=== PATIENT | female | born 1940 | race Caucasian/White ===

== ENCOUNTER 2019-07-02 06:20 | Inpatient (IN) ==
--- NOTE | 2019-06-09 20:56 | PAT Medication Instructions ---
Medication Instructions Date of Service June 09, 2019 Home Medications atorvastatin 20 mg PO QPM biotin 10,000 mcg PO HS calcium carbonate-vitamin D3 Calcium 600 + D(3) 1 cap PO BID diltiazem HCl 240 mg PO QAM diltiazem HCl 240 mg PO QAM glucos sul [id number]-C-Mn Glucosamine Chondroitin 1 cap PO BID levothyroxine 75 mcg PO QAM losartan 100 mg PO QPM lutein-zeaxanthin 1 cap PO QAM magnesium oxide 400 mg PO DAILY multivitamin 1 cap PO 1200 potassium chloride 10 meq PO DAILY triamterene-hydrochlorothiazid 1 tab PO DAILY triamterene-hydrochlorothiazid 1 tab PO QAM turmeric root extract 1,500 mg PO BIDM STOP taking 2 weeks before surgery (or as soon as possible if surgery is within 2 weeks) biotin 10,000 mcg PO HS glucos sul [id number]-Mn Glucosamine Chondroitin 1 cap PO BID lutein-zeaxanthin 1 cap PO QAM turmeric root extract 1,500 mg PO BIDM DO NOT take the morning of surgery calcium carbonate-vitamin D3 Calcium 600 + D(3) 1 cap PO BID magnesium oxide 400 mg PO DAILY multivitamin 1 cap PO 1200 potassium chloride 10 meq PO DAILY triamterene-hydrochlorothiazid 1 tab PO DAILY triamterene-hydrochlorothiazid 1 tab PO QAM Take morning of surgery With a small sip of water, OTHERWISE NOTHING TO EAT OR DRINK AFTER MIDNIGHT: diltiazem HCl 240 mg PO QAM diltiazem HCl 240 mg PO QAM levothyroxine 75 mcg PO QAM Take evening before surgery atorvastatin 20 mg PO QPM calcium carbonate-vitamin D3 Calcium 600 + D(3) 1 cap PO BID losartan 100 mg PO QPM Other Notes If you have any questions please call us at [phone] or [phone] or [phone] or [phone]
--- NOTE | 2019-06-10 10:34 | Anesthesiology Consultation ---
Date of Service June 10, 2019 Assessment & Plan (1) Encounter for pre-operative examination: - Anxiety: *Per patient, has previously hyperventilated prior to surgery/anxiety related* Chart Review Chart Review: Acceptable Risk for Surgery (pending cardiology office visit note (Dr. Sargent; [place])) and Patient seen in Pre Admission Testing Teaching & Discussion Pre-Anesthesia Teaching/Discussion Notes: Instructed NPO after midnight before surgery,except medications with 15 cc of water. Medication instructions provided according to the PAT guidelines. History Surgery Operation Date: 07/02/19 07:30 Proposed Procedures p Right Total Knee Replacement - Chris Banegas MD Height/Weight Height: 5 ft 4 in Weight: 75.7 kg Allergies Allergy/AdvReac Type Severity Reaction Status Date / Time amlodipine Allergy edema Verified 06/10/19 10:57 diltiazem Allergy edema Verified 06/10/19 10:57 metoclopramide [From Reglan] Allergy unknown Verified 06/10/19 10:57 reaction nebivolol [From Bystolic] Allergy edema, Verified 06/10/19 10:57 breathing issues cyclobenzaprine AdvReac Unknown heart Verified 06/10/19 10:41 [From Flexeril] arrhythmias worsening doxycycline AdvReac Unknown heart Verified 06/10/19 10:41 arrhythmias worsening, diarrhea lisinopril AdvReac cough Verified 06/10/19 10:57 metoprolol AdvReac bloating, Verified 06/10/19 10:57 malaise Medications Home Medications Medication Instructions Recorded Confirmed Last Taken atorvastatin 20 mg PO QPM 06/03/19 06/03/19 Unknown biotin 10,000 mcg PO HS 06/03/19 06/03/19 Unknown calcium carbonate-vitamin D3 1 cap PO BID 06/03/19 06/03/19 Unknown [Calcium 600 + D(3)] diltiazem HCl 240 mg PO QAM 06/03/19 06/03/19 Unknown diltiazem HCl 240 mg PO QAM 06/03/19 06/03/19 Unknown glucos sul [id number]-Mn 1 cap PO BID 06/03/19 06/03/19 Unknown [Glucosamine Chondroitin] levothyroxine 75 mcg PO QAM 06/03/19 06/03/19 Unknown losartan 100 mg PO QPM 06/03/19 06/03/19 Unknown lutein-zeaxanthin 1 cap PO QAM 06/03/19 06/03/19 Unknown magnesium oxide 400 mg PO DAILY 06/03/19 06/03/19 Unknown multivitamin 1 cap PO 1200 06/03/19 06/03/19 Unknown potassium chloride 10 meq PO DAILY 06/03/19 06/03/19 Unknown triamterene-hydrochlorothiazid 1 tab PO DAILY 06/03/19 06/03/19 Unknown triamterene-hydrochlorothiazid 1 tab PO QAM 06/03/19 06/03/19 Unknown turmeric root extract 1,500 mg PO BIDM 06/03/19 06/03/19 Unknown Past Medical History Medical History Esophageal reflux occasional Hx of squamous cell carcinoma of skin s/p punch biopsy Hyperlipidemia Hypertension Hypothyroidism LBBB (left bundle branch block) MVP (mitral valve prolapse) Moderate prolapse of the anterior leaflet of the mitral valve. Mild to mode rate MR. per 10/2018 ECHO Osteoarthritis PAC (premature atrial contraction) PVC (premature ventricular contraction) Exercise / Class Metabolic Activity II 4-5 Yardwork/Stairs/Walk up hill Past Family History Family History Father Family history of diabetes mellitus Brother Family history of diabetes mellitus Past Surgical History Surgical History History of D&C History of carpal tunnel surgery of left wrist History of endoscopic sinus surgery History of esophagogastroduodenoscopy (EGD) History of left knee replacement History of radiofrequency ablation procedure for cardiac arrhythmia 2/2 SVT (2011) History of right shoulder replacement History of surgery Myotomy fundoplication History of surgical removal of ganglion cyst History of throat surgery thyroplasty (2/2 vocal cord dysfunction/"singing range" limited) History of tonsillectomy History of tubal ligation Hx of bilateral cataract extraction Hx of blepharoplasty Hx of colonoscopy Hx of total hysterectomy Past Anesthesia History No Hx of Anesthesia Complications (except PONV) and No Family Hx of Anesthesia Complications *Per patient, has previously hyperventilated prior to surgery/anxiety related* History of PONV No Hx of Motion Sickness and History of PONV Social History Smoking Status: Never smoker Do You Dip or Chew Tobacco: No Hx Alcohol Use: Yes Alcohol type: wine alcohol intake frequency: a few times a month Hx Substance Use: No Review of Systems Occasional palpitations (unchanged, chronic, stable). Esophageal reflux occasional. Patient denies chest pain, shortness of breath, dyspnea on exertion, cough, wheezing, palpitations. Physical Exam Vital Signs VITALS BP 154/83 P 70 TEMP 98.4 SP02 93%RA RESP 20 PHYSICAL Mildly decreased cervical extension 2/2 arthritis Full TMJ range of motion. TMD 3 finger breaths Mallampati Score 1 Dentition: intact, several crowns "all over" Lungs: clear throughout to auscultation Cardiac: regular rate and rhythm, no murmurs noted Spine: normal Carotid arteries: negative bruit Extremities: no edema Testing Laboratory Results 06/10/19 10:51 06/10/19 10:51 PT 9.9 Seconds (9.0-12.0) 06/10/19 10:51 INR 1.0 (0.9-1.1) 06/10/19 10:51 APTT 23.9 Seconds (21.0-31.0) 06/10/19 10:51 Blood Type A Positive 06/10/19 10:51 Antibody Screen NEGATIVE 06/10/19 10:51 Electrocardiogram Date: 11/28/18 SR at 73bpm. LBBB. PAC's. Chest X-Ray Date: 06/10/19 There is no evidence of focal pulmonary consolidation. There is no evidence of failure. No pleural effusions are visualized. There are postsurgical changes of a right shoulder arthroplasty. There is possible calcific tendinitis within the left shoulder. No active disease in the chest. Echocardiogram Date: 10/22/18 LVEF 55-60%. Mild cLVH. Moderate prolapse of the anterior leaflet of the mitral valve. Mild to moderate MR. Mild LAD. Borderline RAD. Mild TR.
--- NOTE | 2019-06-10 11:12 | XRay Report ---
XR chest Pre-admission PA/Lat CLINICAL HISTORY: Preoperative chest COMPARISON STUDY: April 2016 FINDINGS: The cardiac and mediastinal contours are normal. There is no evidence of focal pulmonary co nsolidation. There is no evidence of failure. No pleural effusions are visualized.[There are postsurg ical changes of a right shoulder arthroplasty. There is possible calcific tendinitis within the left shoulder. IMPRESSION: No active disease in the chest. Electronically signed by: Giovanni Carey M.D. 06/10/2019 11:10 AM
[2019-06-10 11:45] LABS: Basophils # (auto) 0.02 K/uL (0-0.2); Basophils % (auto) 0.4 %; Eosinophils # (auto) 0.09 K/uL (0-0.5); Eosinophils % (auto) 1.8 %; Hematocrit (blood only) 40.8 % (37-47); Hemoglobin 13.9 g/dL (12.0-16.0); Immature Granulocytes # (auto) 0.01 K/uL (0.00-0.02); Immature Granulocytes % (auto) 0.2 %; Lymphocytes % (auto) 35.3 %; Mean Corpuscular Hemoglobin 30.2 pg (25-34); Mean Corpuscular Hgb Conc 34.1 g/dL (32-36); Mean Corpuscular Volume 88.7 fL (80-100); Mean Platelet Volume 10.8 fL (7.4-10.4); Monocytes # (auto) 0.61 K/uL (0.11-0.59); Neutrophils # (auto) 2.57 K/uL (1.4-6.5); Neutrophils % (auto) 50.3 %; Platelet Count 196 K/uL (130-400); RDW Standard Deviation 42.3 fL (36.4-46.3)
[2019-06-10 11:55] LABS: Partial Thromboplastin Ratio 0.9; Partial Thromboplastin Time 23.9 Seconds (21.0-31.0); Prothrombin Time 9.9 Seconds (9.0-12.0)
[2019-06-10 16:40] LABS: BUN Creatinine Ratio 20.9 (10-20); Blood Urea Nitrogen 21 mg/dl (7-18); C Reactive Protein < 0.29 mg/dl (0-0.29); Calcium 9.6 mg/dl (8.5-10.1); Carbon Dioxide 30 mmol/L (21-32); Chloride 103 mmol/L (98-107); Creatinine Clr Calc Pharmacy 46.5 ml/min; Est GFR (African American) 62.2; Est GFR (Non-African American) 53.7; Glucose 82 mg/dl (70-99); Potassium 3.6 mmol/L (3.5-5.1); Sodium 138 mmol/L (136-145)
--- NOTE | 2019-06-27 17:57 | History and Physical Report ---
DATE OF ADMISSION: 07/02/2019 CHIEF COMPLAINT: Right knee pain, discomfort and stiffness. HISTORY OF PRESENT ILLNESS: The patient is a 78-year-old female well known to me from previous left knee replacement done in 2007. She has done pretty well on that side. Over the past several years, she has developed increased pain and discomfort in her right knee. It has gotten worse just slowly over a 10-year period of time. She has had intermittent injections, which provides some temporary relief only. It has become less successful over time. Knee has become more stiff. The more she walks, the more it hurts, the more she limps. She has pain going up and down stairs. She has trouble exercising as a result of her pain. She gets swelling. She would like to have her right knee fixed. PAST MEDICAL HISTORY: Significant for: 1. Hypertension. 2. Elevated cholesterol. 3. Hypothyroidism. 4. Gastroesophageal reflux disease. 5. Arthritis. PAST SURGICAL HISTORY: Previous surgeries include: 1. Tonsillectomy. 2. Tubal ligation. 3. D and C. 4. Hysterectomy. 5. Ganglion cyst removal. 6. Sinus surgery. 7. Left knee replacement done in 2007. 8. Right shoulder replacement done in 2010 in [place]. 9. Catheter ablation. 10. Cataracts. 11. Eyelid reduction. 12. Carpal tunnel release. 13. Fundoplication. 14. Pyeloplasty. ALLERGIES: TO BYSTOLIC, METOPROLOL, AMLODIPINE, DILTIAZEM, DOXYCYCLINE, FLEXERIL. CURRENT MEDICINES: Include: 1. Levothyroxine 75 mcg a day. 2. Cozaar 100 mg. 3. Triamterene/hydrochlorothiazide 37.5/25 mg once a day. 4. Dexilant 60 mg twice a day. 5. Atorvastatin 20 mg. 6. Potassium 10 mEq a day. 7. Lutein. 8. Centrum Silver. 9. Vitamin D3. 10. Biotin. 11. Magnesium. 12. Calcium. 13. Glucosamine. 14. Turmeric. SOCIAL HISTORY: A 78-year-old female patient from [place]. Very active. Does not smoke. FAMILY HISTORY: Noncontributory. REVIEW OF SYSTEMS: Negative for diabetes, neurologic problem, vascular problem, bleeding disorders. No chest pain or shortness of breath. No history of DVT or PE. PHYSICAL EXAMINATION: GENERAL: Reveals a healthy pleasant elderly female. Looks younger than her stated age. HEENT: Benign. NECK: Supple. No lymphadenopathy. LUNGS: Clear to auscultation. HEART: Regular rate and rhythm. ABDOMEN: Soft, nontender, nondistended. EXTREMITIES: Grossly neurovascularly intact except as follows. Examination of the right knee reveals the patient walks independently. She does seem to limp on this right side slightly. She has got a moderate sized knee effusion. Range of motion about 10 degrees of full extension and about 110 degrees of flexion and fairly stiff. There is no clinical instability. No pain with hip motion. She is neurologically intact. Examination of left knee reveals well-healed incision. No swelling. Range of motion is 0-120. X-RAYS: X-rays of right knee reveal advanced right knee tricompartment DJD. She has got complete loss of her medial and lateral joint space. She has got patellofemoral arthritis. She has got osteophytes in all 3 compartments and subchondral sclerosis. ASSESSMENT: A 78-year-old white female 11 years out from left knee replacement with right knee degenerative joint disease. She has failed conservative treatment and would like to have her right knee replaced. PLAN: We will take her to the Operating Room and do a right total knee replacement. The risks and benefits of this procedure were explained to the patient including but not limited to DVT, PE, , infection, neurological injury, vascular injury, bleeding problem, pain, limited range of motion, stiffness, failure to relieve symptoms, incomplete relief of symptoms, need for further surgery in future, fracture, leg length inequality, nerve palsy, etc. The patient understands and desires to proceed. Informed consent was obtained. We talked about pain management. She really wants to avoid Percocet if all possible. We will careful with NSAIDs due to her slightly compromised renal function. We will use Tylenol and low dose NSAIDs and then likely some tramadol. We will hold on any iron if she has had troubles with that unless her blood count gets low. As far as discharge plans, she is planning to be discharged home using [facility].
[~2019-07-02 06:20] MED LIST: ACETAMINOPHEN 500 MG TAB PO SCH; BUPIVACAINE LIPOSOME/PF 266 MG, BUPIVACAINE/EPINEPHRINE 50 ML, SODIUM CHLORIDE 0.9% 30 ... INFIL SCH; CEFAZOLIN 2000MG 2,000 MG/15 ML SYR IV SCH; FAMOTIDINE 20 MG TAB PO SCH; GABAPENTIN 300 MG CAP PO SCH; LR 15ML/HR IV SCH; LR 60ML/HR IV SCH; METOCLOPRAMIDE HCL 10 MG TABLET PO SCH; SCOPOLAMINE 1.5 MG TDSY TD SCH; TRANEXAMIC ACID 1,000 MG **IV Pre-op IV SCH
[2019-07-02] MEDS ORDERED: TRANEXAMIC ACID 1,000 MG **IV Intra-op IV SCH (06:30)
--- NOTE | 2019-07-02 06:51 | History & Physical Bridge Note ---
Date of Service July 02, 2019 History & Physical Bridge Note I have examined the patient, reviewed the History & Physical and in the interval since the performance of the History & Physical I have noted the following changes of clinical significance: no changes noted
[2019-07-02] MEDS ORDERED: ROPIVACAINE 0.5% 5 MG/ML 30 ML VIAL ONE (07:12)
[2019-07-02] MEDS ORDERED: BUPIVACAINE 0.5 % 5 MG/1 ML PF 10ML VIAL ONE (07:13)
[2019-07-02] MEDS ORDERED: PROPOFOL IV EMULSION 10 MG/ML 20 ML VIAL IV ONE ×2 (07:37→10:11)
[2019-07-02] MEDS ORDERED: MIDAZOLAM HCL 1 MG/ML 2ML VIAL ONE (07:37)
[2019-07-02] MEDS ORDERED: fentaNYL citrate 100 MCG/2 ML VIAL ONE (07:37)
[2019-07-02] MEDS ORDERED: LIDOCAINE HCL 2% 2 ML VIAL/AMP(20MG/ML) INFIL ONE (07:37)
[2019-07-02] MEDS ORDERED: ePHEDrine sulfate 50 MG/ML AMP IV PRN (08:12)
[2019-07-02] MEDS ORDERED: fentaNYL citrate 100 MCG/2 ML VIAL IV PRN (08:12)
[2019-07-02] MEDS ORDERED: ATROPINE SULFATE 0.1 MG/ML 10ML SYR IV PRN (08:12)
[2019-07-02] MEDS ORDERED: ONDANSETRON INJ 2 MG/ML 2 ML VIAL IV PRN (08:12)
[2019-07-02] MEDS ORDERED: BUPIVACAINE/EPINEPHRINE 0.25% 1:200,000 30 ML VIAL ONE (09:10)
[2019-07-02] MEDS ORDERED: BACITRACIN INJ 50,000 UNIT VIAL ONE (09:10)
[2019-07-02] MEDS ORDERED: BUPIVACAINE LIPOSOME 1.3% 266 MG/20 ML VIAL ONE ×2 (09:10→09:22)
[2019-07-02] MEDS ORDERED: SODIUM CHLORIDE 0.9% PF 50 ML VIAL ONE ×2 (09:10→09:22)
[2019-07-02] MEDS ORDERED: ePHEDrine sulfate 50 MG/ML SYR ONE (09:50)
--- NOTE | 2019-07-02 10:59 | Post Operative Brief Note ---
PG Immediate Post Op with CF Date of Surgery July 02, 2019 Pre & Post Diagnosis Operation Date: 07/02/19 09:05 Pre-Op Diagnosis: Right Knee Degenerative Joint Disease w/knee pain Post-Op Diagnosis: Right Knee Degenerative Joint Disease w/knee pain Procedure Operation Date: 07/02/19 09:05 Actual Procedures p Right Total Knee Replacement(Right) - Chris Banegas MD Surgeon Chris Banegas MD Clerk [employer] [place], PAC Estimated Blood Loss 50 Findings Consistent with Post-Op Diagnosis Fluids 1600 cc Specimens Specimen Description: Permanent specimen: A. right knee bone and tissue Drains Ritchie Catheter Anesthesia Type Spinal MAC Complications none Disposition Accompanied Patient To Recovery: No Disposition: Recovery Room
--- NOTE | 2019-07-02 11:32 | XRay Report ---
TWO VIEWS RIGHT KNEE CLINICAL HISTORY: Postoperative examination. FINDINGS: AP and crosstable lateral portable views of the right knee are obtained. A right knee arthr oplasty is in near anatomic alignment. There has been undersurface remodeling of the patella. No acut e fracture is seen. There are expected postoperative changes around the knee including skin clips, so ft tissue edema, and subcutaneous gas. IMPRESSION: Expected postoperative changes status post right knee arthroplasty. No acute fracture is seen. Electronically signed by: Chau Tristan M.D. 07/02/2019 11:31 AM
--- NOTE | 2019-07-02 11:37 | Anesthesiology Progress Note ---
Date of Service July 02, 2019 Anesthesia Post Procedure Vital Signs Vital Signs: Temp Pulse Pulse Resp BP Pulse Ox 07/02/19 11:30 55 L 14 104/50 L 96 07/02/19 11:20 58 L 25 H 108/47 L 94 07/02/19 11:10 54 L 15 103/51 L 94 07/02/19 11:04 36.6 C 62 17 98/48 L 94 07/02/19 06:45 36.8 C 62 18 151/74 H 97 Transfer of Care Handoff Completed per policy Notes Mental Status: alert / awake / arousable and participated in evaluation Nausea / Vomiting: adequately controlled Pain: adequately controlled Airway Patency, RR, SpO2: stable & adequate BP & HR: stable & adequate Hydration State: stable & adequate Neuraxial Anesthesia: was administered and sensory block is resolving Anesthetic Complications: no major complications apparent and Pt Satisfied with anesthetic care
[2019-07-02] MEDS ORDERED: BISACODYL 10 MG SUPP PR PRN (11:58)
[2019-07-02] MEDS ORDERED: TRAMADOL HCL 50 MG TABLET PO PRN (11:58)
[2019-07-02] MEDS ORDERED: MAGNESIUM HYDROXIDE SUSP 30 ML UDC PO PRN (11:58)
[2019-07-02] MEDS ORDERED: HYDROmorphone INJ 0.5 MG/0.5 ML SYR IV PRN (11:58)
[2019-07-02] MEDS ORDERED: ALUMINUM/MAGNESIUM SUSP 30 ML UDC PO PRN (11:58)
[2019-07-02] MEDS ORDERED: HYDROmorphone HCL 2 MG TAB PO PRN (11:58)
[2019-07-02] MEDS ORDERED: NALOXONE HCL 0.4 MG/1 ML VIAL/CARP IV PRN (11:58)
[2019-07-02] MEDS ORDERED: METOCLOPRAMIDE HCL INJ 5 MG/ML 2 ML VIAL IV PRN (11:58)
[2019-07-02] MEDS ORDERED: NON-FORMULARY MEDICATION (Multivitamin 1 CAP) PO SCH (12:00)
[2019-07-02] MEDS: SODIUM CHLORIDE 0.9% 1000ML 1,000 ML IV SCH ×2 (13:06→23:03)
[2019-07-02] MEDS: ACETAMINOPHEN 500 MG TAB PO SCH ×2 (14:29→21:08)
[2019-07-02] MEDS: KETOROLAC TROMETHAMINE 15 MG/ML VIAL IV SCH ×2 (14:30→20:34)
[2019-07-02] MEDS: CHECK SCOPOLAMINE PATCH PLACEMENT SCH (15:09)
[2019-07-02] MEDS ORDERED: TRANEXAMIC ACID 1,000 MG in 0.9 % SODIUM CHLORIDE 100 ML IV SCH (17:00)
[2019-07-02] MEDS ORDERED: TURMERIC ROOT EXTRACT 1500 MG PO SCH (17:00)
[2019-07-02] MEDS: CEFAZOLIN 1000MG 1,000 MG/7.5 ML SYR IV SCH (17:12)
[2019-07-02] MEDS: ASCORBIC ACID 500 MG TAB PO SCH (17:15)
--- NOTE | 2019-07-02 20:29 | Operative Report ---
DATE OF OPERATION: 07/02/2019 SURGEON: Chris Banegas MD. CATHETER BUILDER: LAURA Arredondo. PREOPERATIVE DIAGNOSIS: Right knee degenerative joint disease. POSTOPERATIVE DIAGNOSIS: Right knee degenerative joint disease. PROCEDURE PERFORMED: Right cemented posterior stabilized total knee arthroplasty. COMPLICATIONS: None. ESTIMATED BLOOD LOSS: 50 mL. FLUID REPLACEMENT: 1600 mL of crystalloid fluid replacement. ANESTHESIA: Spinal with adductor canal block. DRAINS: None. SPECIMENS: Right knee sent for pathology. TOURNIQUET TIME: 53 minutes at 300 mmHg. OPERATIVE INDICATIONS: The patient is a 78-year-old very active female who has had a long history of knee problems. She underwent a left knee replacement about 10 years ago and has done well with this. She has had developed increased pain and discomfort in her right knee over the past 10-15 years. She has failed conservative treatment. X-rays revealed advanced DJD. She elected to proceed with surgical treatment. OPERATIVE FINDINGS: Operative findings revealed advanced right knee DJD. She had grade 4 [id number] disease in all 3 compartments, most severe with eburnation of the lateral compartment. She had a moderate to large knee joint effusion. She had a flexion contracture of about 10-15 degrees. OPERATIVE IMPLANTS: Operative implants consisted of: 1. Biomet Vanguard size 62.5 right posterior stabilized femoral component. 2. Biomet size 67 tibial tray. 3. A 10 mm posterior stabilized polyethylene insert. 4. A 31 x 8 all poly patella. OPERATIVE PROCEDURE: The patient was taken to the operating room, identified and placed on the operating table in supine position. All contact areas were appropriately padded. IV antibiotics were provided by anesthesia team. A spinal anesthetic and adductor canal block had been provided in the holding area. Ritchie catheter was placed in sterile fashion. Right thigh tourniquet was then placed and the right lower extremity was then prepped and draped in the usual sterile fashion. The right leg was elevated and exsanguinated with an Esmarch and tourniquet was placed at 300 mmHg. An anterior approach to the right knee was then performed through a longitudinal incision centered over the patella. Sharp dissection was carried through subcutaneous tissues down below the extensor mechanism. A medial parapatellar arthrotomy incision was made. Some subperiosteal dissection was carried out medially. The fat pad was resected from beneath the patellar tendon. The lateral patellofemoral ligament was released. The patella was subluxated laterally and the knee was flexed. The osteophytes were taken off the distal femur. The ACL and PCL were then released from the distal femur and the tibia subluxated anteriorly. External tibial alignment jig was then placed in the anterior face of the tibia and adjusted 14 mm medially. Proximal tibial cut was made to remove about 2 mm from the most deficient aspect of the medial tibial plateau. Tibia was then sized to a size 67. Some osteophytes were taken off medial and posteromedially. Attention was then drawn to the femur. The distal femur was entered with a sharp drill. Intramedullary canal was suctioned. A right 5-degree valgus cutting guide was placed. Distal femoral cutting block was pinned in place. Distal femoral cut was made to take an additional 3 mm of bone off the distal femur. The femur was then sized to a size 62.5. We did downsize this slightly. The AP cutting block was pinned parallel to the epicondylar axis, which was 4 degrees of external rotation. The anterior cut, anterior chamfer cut, posterior cut, posterior chamfer cuts were made. Box cutting guide was placed and adjusted slightly lateral and the box cut was made. The knee was flexed. The remnants of the medial and lateral menisci were excised. The osteophytes were taken off the posterior aspect of the femur. Trial femoral component was placed. The tibial tray was pinned in maximum external rotation and drill and stem punch were used to create defect in proximal tibia for the tibial tray. The knee was then trialed and the 10 mm insert fit most appropriately. Attention was then drawn to the patella. The patella was cleaned of all soft tissues. Patella thickness measured 21 mm in thickness, it was cut down to 13. It was sized to a size 31 patella. Lug holes were drilled for 31 patella. Lateral osteophyte was removed. Patella button was placed. Knee was taken through range of motion and the patella tracked nicely with no thumbs test. Attention turned toward placement of permanent components. All trial components were removed. Bone plug was placed in the distal femur to limit blood loss. A double batch of Palacos G cement was mixed. A Biomet Vanguard size 62.5 right posterior stabilized femoral component, a size 67 tibial tray, 10 mm posterior stabilized polyethylene insert, and 31 x 8 all poly patella then cemented in place. Knee was brought out into full extension until cement hardened. Final cement check was then performed. Pericapsular tissues were injected with a total of 100 mL of combination of 20 mL Exparel, 30 mL of normal saline, 50 mL of 0.25% Marcaine with epinephrine. The patient did receive 1 gram of tranexamic acid. The tourniquet was then let down for final tourniquet time of 53 minutes. Hemostasis was assured with use of electrocautery. The wound was once again irrigated. Extensor mechanism was then closed with combination of #1 PDS suture and #1 Vicryl suture in [id number] fashion. Extensor mechanism was checked and found to be intact and subcutaneous tissue was then closed with #2 Dexon suture in a buried interrupted fashion. Skin was closed with skin gurinder. Leg was then cleaned, dried and a sterile dressing with Xeroform, 4 x 4, sterile cast padding and Yanick bandage were applied. The patient then transferred to the recovery room in stable condition. The patient tolerated the procedure well with no complications. All needle and sponge counts were correct at the end of the operation. I attest to the content of the Intraoperative Record and any orders documented therein. Any exception s are noted below.
[2019-07-02] MEDS: ATORVASTATIN 20 MG TAB PO SCH (20:36)
[2019-07-02] MEDS: ASPIRIN 81 MG ECTAB PO SCH (20:36)
[2019-07-02] MEDS: CALCIUM 600MG + VIT D 400 IU TAB PO SCH (20:36)
[2019-07-02] MEDS: SENNA 8.6 MG TAB PO SCH (20:37)
[2019-07-02] MEDS: LOSARTAN POTASSIUM 50 MG TAB PO SCH (20:37)
[2019-07-02] MEDS: DOCUSATE SODIUM 100 MG CAP PO SCH (20:37)
--- NOTE | 2019-07-02 20:47 | Progress Note ---
DATE: 07/02/2019 SUBJECTIVE: A 78-year-old white female postop from a right knee replacement. She is doing well. She had some pain, took a little bit of pain medicine and doing better. No chest pain or shortness of breath. Not feeling dizzy or lightheaded. She states once again, she wants to avoid taking iron or Percocet if possible. OBJECTIVE: VITAL SIGNS: Temperature is 36.8. Vital signs stable. GENERAL: Shows a pleasant elderly female. She is sitting up in bed and looks to be resting comfortably this evening. LUNGS: Clear to auscultation. HEART: Regular rate and rhythm. ABDOMEN: Soft, nontender, nondistended. EXTREMITIES: Grossly neurovascularly intact except as follows: Examination of the right lower extremity reveals the dressing to be clean, dry and intact. Her leg is well aligned. She can dorsiflex and plantarflex her foot appropriately. She is neurologically intact. X-RAYS: X-rays of the right knee from recovery room reviewed. It shows right cemented posterior stabilized total knee arthroplasty. Components looked to be in good position. There are no signs of problems. ASSESSMENT: A 78-year-old white female postop from right knee replacement, doing well. Pain is controlled. She is neurologically intact. PLAN: 1. DVT prophylaxis including thigh-high TEDs, SCDs, and aspirin twice a day. 2. PT/OT. Weight bear as tolerated. Right total knee protocol. 3. Pain control, doing pretty well with current pain regimen. She wants to stay away from Percocet if at all possible. Will use Tylenol around the clock and use a low dose Toradol and then use tramadol in addition as needed. 4. IV antibiotics x24 hours. 5. Disposition: Plan to discharge to home with some home health once adequately recovered.
[2019-07-02] MEDS ORDERED: NON-FORMULARY MEDICATION (Glucos Sul 2kcl-Msm-Chond-C-Mn [Glucosamine Chondroitin] 1 CAP) PO SCH (21:00)
[2019-07-02] MEDS ORDERED: NON-FORMULARY MEDICATION (Biotin 10,000 MCG) PO SCH (21:00)
[2019-07-03] MEDS: CHECK SCOPOLAMINE PATCH PLACEMENT SCH (00:03)
[2019-07-03] MEDS: KETOROLAC TROMETHAMINE 15 MG/ML VIAL IV SCH ×4 (02:27→20:18)
[2019-07-03] MEDS: CEFAZOLIN 1000MG 1,000 MG/7.5 ML SYR IV SCH (02:28)
[2019-07-03] MEDS: ONDANSETRON INJ 2 MG/ML 2 ML VIAL IV PRN ×2 (03:54→15:42)
[2019-07-03] MEDS: ACETAMINOPHEN 500 MG TAB PO SCH ×3 (05:47→21:39)
[2019-07-03] MEDS: LEVOTHYROXINE SODIUM 75 MCG TABLET PO SCH (05:47)
[2019-07-03 06:22] LABS: Hematocrit (blood only) 29.7 % (37-47); Hemoglobin 10.2 g/dL (12.0-16.0); Mean Corpuscular Hemoglobin 30.4 pg (25-34); Mean Corpuscular Hgb Conc 34.3 g/dL (32-36); Mean Corpuscular Volume 88.7 fL (80-100); Mean Platelet Volume 10.2 fL (7.4-10.4); Platelet Count 163 K/uL (130-400); RDW Coefficient of Variation 12.5 % (11.5-14.5); RDW Standard Deviation 40.3 fL (36.4-46.3); Red Blood Count 3.35 M/uL (4.2-5.4); White Blood Count 5.54 K/uL (4.8-10.8)
[2019-07-03 06:54] LABS: BUN Creatinine Ratio 18.2 (10-20); Calcium 8.5 mg/dl (8.5-10.1); Creatinine Clr Calc Pharmacy 38.1 ml/min; Est GFR (African American) 49.5; Est GFR (Non-African American) 42.7; Potassium 3.3 mmol/L (3.5-5.1)
--- NOTE | 2019-07-03 07:45 | Anesthesiology Progress Note ---
Date of Service July 03, 2019 Anesthesia Post Procedure Vital Signs Vital Signs: Temp Pulse Pulse Pulse Pulse Resp BP 07/03/19 07:29 36.7 C 56 L 16 125/72 07/03/19 02:30 36.9 C 56 L 14 109/66 07/02/19 23:43 36.7 C 52 L 16 106/64 07/02/19 20:35 51 L 120/70 07/02/19 18:59 36.8 C 52 L 07/02/19 14:55 36.3 C L 46 L 16 115/68 07/02/19 13:55 36.3 C L 47 L 16 103/64 07/02/19 12:54 36.7 C 49 L 18 115/66 07/02/19 12:27 53 L 18 07/02/19 11:55 36.4 C L 52 L 14 100/64 07/02/19 11:39 36.9 C 52 L 17 07/02/19 11:30 55 L 14 07/02/19 11:20 58 L 25 H 07/02/19 11:10 54 L 15 07/02/19 11:04 36.6 C 62 17 BP Pulse Ox 07/03/19 07:29 95 07/03/19 02:30 92 07/02/19 23:43 95 07/02/19 20:35 07/02/19 18:59 123/61 97 07/02/19 14:55 97 07/02/19 13:55 95 07/02/19 12:54 93 07/02/19 12:27 94/52 L 93 07/02/19 11:55 96 07/02/19 11:39 113/46 L 95 07/02/19 11:30 104/50 L 96 07/02/19 11:20 108/47 L 94 07/02/19 11:10 103/51 L 94 07/02/19 11:04 98/48 L 94 Pain Intensity Right Leg: Pain Intensity: 2 Notes Mental Status: alert / awake / arousable and participated in evaluation Patient Amnestic to Procedure: Yes Nausea / Vomiting: adequately controlled Pain: adequately controlled Airway Patency, RR, SpO2: stable & adequate BP & HR: stable & adequate Hydration State: stable & adequate Neuraxial Anesthesia: was administered and sensory block resolved Anesthetic Complications: no major complications apparent and Pt Satisfied with anesthetic care
[2019-07-03] MEDS ORDERED: POTASSIUM CHLORIDE 20 MEQ TABCR PO ONE ×2 (08:00→16:00)
--- NOTE | 2019-07-03 08:02 | Progress Note ---
DATE: 07/03/2019 SUBJECTIVE: A 78-year-old white female postop day 1 from a right knee replacement. She is doing pretty well, had a pretty good night. Pain seems to be controlled. No chest pain or shortness of breath. Not feeling dizzy or lightheaded. OBJECTIVE: VITAL SIGNS: Temperature 36.7. Vital signs stable. GENERAL: Shows a pleasant, middle-aged female. She is sitting up in bed, looks pretty comfortable. EXTREMITIES: Examination of the right leg reveals the leg to be well aligned. Dressing is clean, dry and intact. She can dorsiflex and plantarflex her foot appropriately. She can do a straight leg raise. LABORATORY DATA: Hemoglobin is 10.2, hematocrit 29.7. Electrolytes are stable. Creatinine is just slightly elevated. Potassium is slightly low. ASSESSMENT: A 78-year-old white female postoperative day 1 from right knee replacement, doing pretty well. Pain is reasonably well controlled. She is anemic, but without symptoms. She does not want iron. Creatinine is a little bit elevated and we will continue hydration. Her potassium is low and we will supplement that. PLAN: 1. DVT prophylaxis including thigh-high TEDs, SCDs, and aspirin twice a day. 2. PT/OT. Weight bear as tolerated. Right total knee protocol. 3. Pain control. We will continue current pain regimen. We are going to stick with low-dose Toradol for now and follow her creatinine as she does not want other stronger pain medicines. We will use Tylenol as well. 4. Hypokalemia. We will supplement her potassium. 5. Disposition: She is planning to be discharged to home with some home health once medically stable.
[2019-07-03] MEDS: ASPIRIN 81 MG ECTAB PO SCH ×2 (08:46→20:18)
[2019-07-03] MEDS: MULTIVITAMIN TAB PO SCH (08:46)
[2019-07-03] MEDS: ASCORBIC ACID 500 MG TAB PO SCH ×2 (08:46→16:43)
[2019-07-03] MEDS: MAGNESIUM OXIDE 400 MG TAB PO SCH (08:47)
[2019-07-03] MEDS: DOCUSATE SODIUM 100 MG CAP PO SCH ×2 (08:47→20:19)
[2019-07-03] MEDS: CALCIUM 600MG + VIT D 400 IU TAB PO SCH ×2 (08:47→20:22)
[2019-07-03] MEDS: dilTIAZem HCL 240 MG CAPCR PO SCH (08:50)
[2019-07-03] MEDS: TRIAMTERENE/HCTZ 37.5/25MG TAB PO SCH (08:51)
[2019-07-03] MEDS ORDERED: NON-FORMULARY MEDICATION (Lutein-Zeaxanthin 1 CAP) PO SCH (09:00)
[2019-07-03] MEDS: POTASSIUM CHLORIDE 10 MEQ TABCR PO SCH (09:31)
[2019-07-03] MEDS: LOSARTAN POTASSIUM 50 MG TAB PO SCH (20:19)
[2019-07-03] MEDS: ATORVASTATIN 20 MG TAB PO SCH (20:19)
[2019-07-03] MEDS: SENNA 8.6 MG TAB PO SCH (20:19)
[2019-07-04] MEDS: KETOROLAC TROMETHAMINE 15 MG/ML VIAL IV SCH ×2 (01:26→08:15)
[2019-07-04] MEDS: ACETAMINOPHEN 500 MG TAB PO SCH (05:37)
[2019-07-04] MEDS: LEVOTHYROXINE SODIUM 75 MCG TABLET PO SCH (05:37)
[2019-07-04 06:37] LABS: BUN Creatinine Ratio 17.4 (10-20); Calcium 9.4 mg/dl (8.5-10.1); Creatinine Clr Calc Pharmacy 37.2 ml/min; Est GFR (African American) 48.1; Est GFR (Non-African American) 41.5; Potassium 4.2 mmol/L (3.5-5.1)
[2019-07-04 06:53] VITALS: TEMP 98.1; O2SAT 93
[2019-07-04] MEDS: DOCUSATE SODIUM 100 MG CAP PO SCH (08:11)
[2019-07-04] MEDS: ASCORBIC ACID 500 MG TAB PO SCH (08:14)
[2019-07-04] MEDS: MAGNESIUM OXIDE 400 MG TAB PO SCH (08:14)
[2019-07-04] MEDS: MULTIVITAMIN TAB PO SCH (08:14)
[2019-07-04] MEDS: TRIAMTERENE/HCTZ 37.5/25MG TAB PO SCH (08:14)
[2019-07-04] MEDS: CALCIUM 600MG + VIT D 400 IU TAB PO SCH (08:14)
[2019-07-04] MEDS: POTASSIUM CHLORIDE 10 MEQ TABCR PO SCH (08:15)
[2019-07-04] MEDS: dilTIAZem HCL 240 MG CAPCR PO SCH (08:15)
[2019-07-04] MEDS: ASPIRIN 81 MG ECTAB PO SCH (08:15)
--- NOTE | 2019-07-04 08:37 | Progress Note ---
DATE: 07/04/2019 SUBJECTIVE: A 78-year-old white female postop day 2 from right knee replacement. She is doing okay. She was pretty constipated yesterday. I gave a bunch of medicines, now she is having some diarrhea. No chest pain or shortness of breath. Not feeling dizzy or lightheaded. Knee pain seems to be controlled. OBJECTIVE: VITAL SIGNS: Temperature 36.7. Vital signs are stable. GENERAL: Reveals a pleasant, middle-aged female. She is sitting up in bed, looks pretty comfortable. EXTREMITIES: Examination of the right leg reveals the leg to be well aligned. Dressing is clean, dry and intact. Calf is soft and supple. She can do a good straight leg raise. She is neurologically intact. ASSESSMENT: A 78-year-old white female postoperative day 2 from right knee replacement, doing pretty well. Pain is controlled. She is anemic, but without symptoms. She does not want any iron. PLAN: 1. DVT prophylaxis including thigh-high TEDs, SCDs, and aspirin twice a day. 2. PT/OT. Weight bear as tolerated. Right total knee protocol. 3. Pain control, doing well with current pain regimen. We are going to try and stick to Tylenol and use tramadol sparingly. We will give her some Zofran for nausea. 4. Disposition: Plan to discharge her home with some home health later today.
[2019-07-04 10:01] VITALS: BP 124/68; PULSE 52
--- NOTE | 2019-07-07 16:03 | Discharge Summary ---
ADMITTING PHYSICIAN AND SURGEON: Dr. Chris Banegas. ADMITTING DIAGNOSIS: Right knee degenerative joint disease. SURGERY PERFORMED: Right total knee arthroplasty. SECONDARY DIAGNOSES: Hypertension, elevated cholesterol, hypothyroidism, gastroesophageal reflux disease, arthritis. CONSULTS: None obtained. HISTORY AND PHYSICAL EXAMINATION: Well documented in the patient's chart. HOSPITAL COURSE: The patient was admitted on 07/02/2019 underwent total knee arthroplasty, tolerated the procedure well. There were no complications. She was transferred to the PACU postoperatively and later to the orthopedic floor for further care. She was given Ancef for antibiotic prophylaxis, SUZAN stockings, SCDs and aspirin for DVT prophylaxis. Hemoglobin, hematocrit and vital signs were monitored during her hospital stay and remained stable. She did not require any blood transfusions. There were no complications. On postoperative day 2, she was tolerating a regular diet, pain was controlled with oral pain medicine. She was participating in physical therapy. Postop day 2, she was discharged home, set up with home health services. She was given printed discharge instructions as well as new prescriptions for extra strength Tylenol, aspirin, Zofran, and tramadol. Continue her home medicines. Continue physical therapy, weightbearing as tolerated, SUZAN stockings. Follow up approximately 2 weeks or sooner if there are any problems or concerns.
== END 2019-07-04 10:34 | disposition home health service (06) | DRG 470 ==
LOC: ASU 06:20 → 3E 11:04

== ENCOUNTER 2025-04-30 06:33 | Inpatient (IN) ==
--- NOTE | 2025-03-23 10:04 | PAT Medication Instructions ---
Medication Instructions Date of Service March 23, 2025 Home Medications Medication Instructions Recorded ondansetron HCl 4 mg tablet 4 mg PO Q8H PRN nausea and 07/03/19 (Zofran) vomiting #30 tabs sennosides 8.6 mg tablet (senna) 8.6 mg PO BID PRN constipation #30 07/08/19 tabs tramadol 50 mg tablet 50 mg PO Q8H PRN pain #30 tabs 02/16/25 atorvastatin 20 mg tablet 10 mg PO QPM diltiazem HCl 240 mg capsule,24 hr,extended release 100 mg PO QAM levothyroxine 75 mcg capsule 75 mcg PO QAM losartan 100 mg tablet 50 mg PO QPM multivitamin 1 cap PO QAM ondansetron HCl 4 mg tablet (Zofran) 4 mg PO Q8H PRN nausea and vomiting 5] sennosides 8.6 mg tablet (senna) 8.6 mg PO BID PRN constipation cyclosporine 0.09 % eye drops in a dropperette (Cequa) 2 drp ophthalmic (eye) Q12H spironolactone 50 mg tablet 50 mg PO .NOON furosemide 20 mg tablet 10 mg PO QAM tramadol 50 mg tablet 50 mg PO Q8H PRN pain DO NOT take the morning of surgery multivitamin 1 cap PO QAM sennosides 8.6 mg tablet (senna) 8.6 mg PO BID PRN constipation spironolactone 50 mg tablet 50 mg PO .NOON furosemide 20 mg tablet 10 mg PO QAM Take morning of surgery With a small sip of water, OTHERWISE NOTHING TO EAT OR DRINK AFTER MIDNIGHT: diltiazem HCl 240 mg capsule,24 hr,extended release 100 mg PO QAM levothyroxine 75 mcg capsule 75 mcg PO QAM ondansetron HCl 4 mg tablet (Zofran) 4 mg PO Q8H PRN nausea and vomiting (if needed) cyclosporine 0.09 % eye drops in a dropperette (Cequa) 2 drp ophthalmic (eye) Q12H tramadol 50 mg tablet 50 mg PO Q8H PRN pain (if needed) Take evening before surgery atorvastatin 20 mg tablet 10 mg PO QPM losartan 100 mg tablet 50 mg PO QPM ondansetron HCl 4 mg tablet (Zofran) 4 mg PO Q8H PRN nausea and vomiting (if needed) sennosides 8.6 mg tablet (senna) 8.6 mg PO BID PRN constipation (if needed) cyclosporine 0.09 % eye drops in a dropperette (Cequa) 2 drp ophthalmic (eye) Q12H tramadol 50 mg tablet 50 mg PO Q8H PRN pain (if needed) Other Notes If you have any questions please call us at [phone] or [phone] or [phone] or [phone]
--- NOTE | 2025-03-29 13:17 | Anesthesiology Consultation ---
Date of Service March 29, 2025 Assessment & Plan (1) Encounter for pre-operative examination: Plan - creatinine 1.8, GFR 27. To [facility] EMR review, last time GFR was below 30 was in 2022. Will send optimization form to [facility] coater slate. PCP office and patient also made aware. - cardiology office visit 03/05/25: "...moderate mitral regurgitation, moderate tricuspid regurgitation, mitral valve prolapse, SVT and chronic LBBB...feeling well without any complaints...will update echocardiogram in 1 year...SVT denies recurrence since ablation 10+ years ago...follow up in 1 year..." Chart Review Chart Review: Pending: Refer to Additional Notes / Consult section and Patient seen in Pre Admission Testing Teaching & Discussion Pre-Anesthesia Teaching/Discussion Notes: Instructed NPO after midnight before surgery, except medications with 15 cc of water. Medication instructions provided according to the PAT guidelines. History Surgery Operation Date: 04/30/25 12:00 Proposed Procedures p Right Anterior Total Hip Arthroplasty - Alexander Holland DO Height/Weight Height: 5 ft 4 in Weight: 72.4 kg Allergies Allergy/AdvReac Type Severity Reaction Status Date / Time nebivolol [From Bystolic] Allergy Severe edema, Verified 03/19/25 07:34 breathing issues amlodipine AdvReac Intermediate edema Verified 03/19/25 07:34 cyclobenzaprine AdvReac Intermediate heart Verified 03/19/25 07:34 [From Flexeril] arrhythmias worsening doxycycline AdvReac Intermediate heart Verified 03/19/25 07:34 arrhythmias worsening, diarrhea oxycodone [From Percocet] AdvReac Intermediate Depression Verified 03/19/25 07:34 lisinopril AdvReac Mild cough Verified 03/19/25 07:34 metoclopramide [From Reglan] AdvReac Unknown unknown Verified 03/19/25 07:34 reaction metoprolol AdvReac Unknown bloating, Verified 03/19/25 07:34 malaise Medications Home Medications Medication Instructions Recorded Confirmed Last Taken atorvastatin 20 mg tablet 10 mg PO QPM 06/03/19 03/19/25 05/20/24 diltiazem HCl 240 mg capsule,24 100 mg PO QAM 06/03/19 03/19/25 05/20/24 hr,extended release levothyroxine 75 mcg capsule 75 mcg PO QAM 06/03/19 03/19/25 05/21/24 06:00 losartan 100 mg tablet 50 mg PO QPM 06/03/19 03/19/25 05/20/24 multivitamin 1 cap PO QAM 06/03/19 03/19/25 05/20/24 ondansetron HCl 4 mg tablet 4 mg PO Q8H PRN nausea and 07/03/19 03/19/25 05/20/24 (Zofran) vomiting #30 tabs sennosides 8.6 mg tablet (senna) 8.6 mg PO BID PRN constipation #30 07/08/19 03/19/25 05/20/24 tabs cyclosporine 0.09 % eye drops in a 2 drp ophthalmic (eye) Q12H 11/26/22 03/19/25 05/20/24 dropperette (Cequa) spironolactone 50 mg tablet 50 mg PO .NOON 11/27/22 03/19/25 05/21/24 06:00 furosemide 20 mg tablet 10 mg PO QAM 05/11/24 03/19/25 05/20/24 tramadol 50 mg tablet 50 mg PO Q8H PRN pain #30 tabs 02/16/25 03/19/25 Unknown mirabegron 25 mg tablet,extended 25 mg PO QAM 03/29/25 03/29/25 Unknown release 24 hr (Myrbetriq) Additional Notes: Patient states is now taking myrbetriq 25 QAM. This was updated in EMR, patient was instructed and it was written on provided medication instructions to NOT take Myrbetriq morning of surgery. She verbalized understanding, denied questions, concerns or additional medications. Past Medical History Medical History (Updated 03/29/25 @ 13:58 by Earnestine Tolentino PA-C) CKD (chronic kidney disease) follows with Dr. Juarez at [facility] Esophageal reflux controlled, stable per p History of COVID-19 x2 > most recent Sep 26, 2022 > not hospitalized > very mild > resolved Hx of squamous cell carcinoma of skin s/p multiple excisions Hyperlipidemia Hypertension controlled, stable per pt Hypothyroidism LBBB (left bundle branch block) follows with Dr. Sargent in [facility] MVP (mitral valve prolapse) Moderate prolapse of the anterior leaflet of the mitral valve. Most recent ECHO 02/[address] [facility] Ander Liao, follows with Dr Sargent [facility] Rob Nausea and vomiting after administration of anesthetic agent on occasion, not every time Osteoarthritis PAC (premature atrial contraction) controlled w/ meds PVC (premature ventricular contraction) controlled w/ meds Stress incontinence Patient denies h/o stroke, seizures, heart attack, heart failure, DM, blood clot s/DVTs or blood transfusions. Exercise / Class Metabolic Activity II 4-5 Yardwork/Stairs/Walk up hill (denies chest discomfort or shortness of breath with one flight of stairs) Past Family History Family History Father Family history of diabetes mellitus Brother Family history of diabetes mellitus Past Surgical History Surgical History (Updated 03/29/25 @ 13:58 by Earnestine Tolentino PA-C) History of carpal tunnel surgery of left wrist History of carpal tunnel surgery of right wrist (11/2022) [facility] History of D&C History of endoscopic sinus surgery History of esophagogastroduodenoscopy (EGD) History of radiofrequency ablation procedure for cardiac arrhythmia 2/2 SVT (2011) History of right shoulder replacement History of surgery Myotomy fundoplication History of surgical removal of ganglion cyst History of throat surgery thyroplasty (2/2 vocal cord dysfunction/"singing range" limited) History of tonsillectomy History of total bilateral knee replacement History of tubal ligation Hx of bilateral cataract extraction Hx of blepharoplasty bilat Hx of colonoscopy Hx of total hysterectomy Status post trigger finger release right Past Anesthesia History No Family Hx of Anesthesia Complications and Other (post-op constipation, required enema after last knee surgery) History of PONV No Hx of Motion Sickness and History of PONV (did well with last knee surgery, denies needing scop patch) Social History Smoking Status: Never smoker Do You Dip or Chew Tobacco: No Hx Alcohol Use: Yes Alcohol type: wine alcohol intake frequency: a few times a month Hx Substance Use: No substance use type: does not use Review of Systems Patient denies chest pain, shortness of breath, dyspnea on exertion, snoring, witnessed apneas, fever, chills, cough, wheezing, or palpitations. Physical Exam Vital Signs Vitals BP 131/70 P 64 TEMP 99.1 SP02 95% on RA RESP 18 Physical Patient resting comfortably in chair in no acute distress, alert and oriented, responding appropriately throughout visit Full cervical extension range of motion without pain TMD 3.5 finger breadths Mallampati Score 2 Dentition: temporary tooth right upper side, several crowns; denies chipped or loose teeth, caps, implants or bridges Lungs: normal respiratory effort. Good air movement, clear throughout to auscultation, no adventitious breath sounds Cardiac: regular rate and rhythm, no murmurs noted Carotid arteries: negative bruit bilat Lab Results Anesthesia Preop Results Results Anesthesia Widget: WBC 6.48 K/ul (4.8-10.8) 03/29/25 Hgb 11.1 g/dl (12.0-16.0) L 03/29/25 Hct 33.8 % (37.0-47.0) L 03/29/25 Plt 239 K/uL (130-400) 03/29/25 Na 136 mmol/L (136-145) 03/29/25 K 4.6 mmol/L (3.5-5.1) 03/29/25 Cl 102 mmol/L (98-107) 03/29/25 CO2 27 mmol/L (21-32) 03/29/25 BUN 36 mg/dl (6-23) H 03/29/25 Creat 1.81 mg/dl (0.6-1.2) H 03/29/25 Glucose Level 104 mg/dl (70-99(Fasting)) H 03/29/25 PT 10.3 Seconds (9.0-12.0) 03/29/25 PTT 25 Seconds (21-31) 03/29/25 INR 0.9 (0.9-1.1) 03/29/25 Blood Type A Positive 03/29/25 Antibody Screen NEGATIVE 03/29/25 Testing Electrocardiogram Date: 03/05/25 NSR, rate 62 bpm Left axis deviation LBBB No significant change vs 03/06/24 EKG Chest X-Ray Date: 03/29/25 No acute findings. Echocardiogram Date: 02/12/25 LVEF 55-60% Moderate asymmetric LVH Grade I diastolic dysfunction Mild aortic valve sclerosis without stenosis Mild tricuspid regurgitation Mildly dilated LA Estimated RVSP mildly elevated at 33 mmHg Moderate thickening and calcification of the anterior and posterior mitral valve leaflets. No evidence of mitral valve stenosis. Moderate mitral valve regurgitation
--- NOTE | 2025-04-29 07:46 | History & Physical Report ---
Date of Service April 29, 2025 Assessment & Plan (1) Osteoarthritis of right hip: We will proceed with a right total hip arthroplasty. Postoperatively, she will be started on aspirin for DVT prophylaxis and kept overnight in the hospital for postop medical management. She plans to use [facility] at discharge. History of Present Illness Chief Complaint: Osteoarthritis of the right hip. Primary Care Provider: Gunjan Cheng DO Rider is a pleasant 84-year-old female who has been dealing with chronic increasing right hip and groin pain. X-rays and clinical exam have been diagnostic for advanced arthritis of the right hip. After failing conservative treatment, she has elected to proceed with a right total hip arthroplasty. Allergies Allergy/AdvReac Type Severity Reaction Status Date / Time nebivolol [From Bystolic] Allergy Severe edema, Verified 03/19/25 07:34 breathing issues amlodipine AdvReac Intermediate edema Verified 03/19/25 07:34 cyclobenzaprine AdvReac Intermediate heart Verified 03/19/25 07:34 [From Flexeril] arrhythmias worsening doxycycline AdvReac Intermediate heart Verified 03/19/25 07:34 arrhythmias worsening, diarrhea oxycodone [From Percocet] AdvReac Intermediate Depression Verified 03/19/25 07:34 lisinopril AdvReac Mild cough Verified 03/19/25 07:34 metoclopramide [From Reglan] AdvReac Unknown unknown Verified 03/19/25 07:34 reaction metoprolol AdvReac Unknown bloating, Verified 03/19/25 07:34 malaise Home Medications Medication Instructions Recorded Confirmed Type atorvastatin 20 mg tablet 10 mg PO QPM 06/03/19 03/19/25 History diltiazem HCl 240 mg capsule,24 100 mg PO QAM 06/03/19 03/19/25 History hr,extended release levothyroxine 75 mcg capsule 75 mcg PO QAM 06/03/19 03/19/25 History losartan 100 mg tablet 50 mg PO QPM 06/03/19 03/19/25 History multivitamin 1 cap PO QAM 06/03/19 03/19/25 History ondansetron HCl 4 mg tablet 4 mg PO Q8H PRN nausea and 07/03/19 03/19/25 Rx (Zofran) vomiting #30 tabs sennosides 8.6 mg tablet (senna) 8.6 mg PO BID PRN constipation #30 07/08/19 03/19/25 Rx tabs cyclosporine 0.09 % eye drops in a 2 drp ophthalmic (eye) Q12H 11/26/22 03/19/25 History dropperette (Cequa) spironolactone 50 mg tablet 50 mg PO .NOON 11/27/22 03/19/25 History furosemide 20 mg tablet 10 mg PO QAM 05/11/24 03/19/25 History tramadol 50 mg tablet 50 mg PO Q8H PRN pain #30 tabs 02/16/25 03/19/25 Rx mirabegron 25 mg tablet,extended 25 mg PO QAM 03/29/25 03/29/25 History release 24 hr (Myrbetriq) Past Med/Surg History Problem List Trochanteric bursitis, right hip Pes anserinus tendinitis of both lower extremities Encounter for pre-operative examination Medical History Stress incontinence Nausea and vomiting after administration of anesthetic agent on occasion, not every time History of COVID-19 x2 > most recent Sep 26, 2022 > not hospitalized > very mild > resolved CKD (chronic kidney disease) follows with Dr. Juarez at [facility] MVP (mitral valve prolapse) Moderate prolapse of the anterior leaflet of the mitral valve. Most recent ECHO 02/2025 [facility], follows with Dr Sargent [facility] LBBB (left bundle branch block) follows with Dr. Sargent in [facility] Esophageal reflux controlled, stable per p Osteoarthritis Hypothyroidism Hx of squamous cell carcinoma of skin s/p multiple excisions Hypertension controlled, stable per pt Hyperlipidemia PVC (premature ventricular contraction) controlled w/ meds PAC (premature atrial contraction) controlled w/ meds Surgical History Status post trigger finger release right History of total bilateral knee replacement History of carpal tunnel surgery of right wrist (11/2022) [facility] History of esophagogastroduodenoscopy (EGD) History of endoscopic sinus surgery History of surgical removal of ganglion cyst History of D&C History of tubal ligation History of tonsillectomy Hx of colonoscopy History of carpal tunnel surgery of left wrist Hx of blepharoplasty bilat History of right shoulder replacement History of throat surgery thyroplasty (2/2 vocal cord dysfunction/"singing range" limited) Hx of total hysterectomy History of surgery Myotomy fundoplication Hx of bilateral cataract extraction History of radiofrequency ablation procedure for cardiac arrhythmia 2/2 SVT (2011) Family History Father Family history of diabetes mellitus Brother Family history of diabetes mellitus Social History Smoking Status: Never smoker Second Hand Exposure: No; Do You Dip or Chew Tobacco: No; Tobacco Cessation Education Requested by Patient: No Hx Alcohol Use: Yes Alcohol type: wine Hx Substance Use: No Preferred Language: Ethiopian Communication Ability: Effective Pencil Inspector Required: No Beliefs That Will Affect Care: None marital status: Current Living Situation: Spouse Other Information That Helps Us Care for You: No Feels Safe at Home: Yes Safety Concerns: Feels Safe At This Time Assistive Devices: None Review of Systems All systems reviewed & are unremarkable except as noted in HPI & below. Physical Exam On physical exam of the right hip, she has decreased range of motion. She has pain with forced internal and external rotation. All of her pains located in the groin.. Constitutional WD/WN, vitals as above Eyes PERRL, conjunctivae normal, anicteric sclerae ENMT external ear and nose normal, oropharynx normal Neck trachea midline, no thyromegaly Respiratory normal respiratory effort Cardiovascular RRR, no murmur, no edema Gastrointestinal (Abdomen) normal bowel sounds, soft, nontender, no hepatosplenomegaly Psychiatric A+Ox3, euthymic affect Results & Data Results & Data Laboratory Results . Diagnostic Findings X-rays of the right hip show advanced osteoarthritis with joint space narrowing, osteophyte formation, and [id number] articulation.. PG Care Time/CCT Total # of Minutes Spent Total Time Spent with Patient: Total time spent is greater than 50% in coordination of care (as documented) at patient's floor/unit and/or counseling patient: Coding Level of Care Code None Diagnoses Osteoarthritis of right hip M16.11
[~2025-04-30 06:33] MED LIST changes: -ACETAMINOPHEN 500 MG TAB PO SCH; -BUPIVACAINE LIPOSOME/PF 266 MG, BUPIVACAINE/EPINEPHRINE 50 ML, SODIUM CHLORIDE 0.9% 30 ... INFIL SCH; -CEFAZOLIN 2000MG 2,000 MG/15 ML SYR IV SCH; -FAMOTIDINE 20 MG TAB PO SCH; -GABAPENTIN 300 MG CAP PO SCH; -LR 15ML/HR IV SCH; -LR 60ML/HR IV SCH; -METOCLOPRAMIDE HCL 10 MG TABLET PO SCH; +ROPIVACAINE 0.5% 5 MG/ML 30 ML VIAL ONE; -SCOPOLAMINE 1.5 MG TDSY TD SCH; -TRANEXAMIC ACID 1,000 MG **IV Pre-op IV SCH
[2025-04-30] MEDS: ACETAMINOPHEN 500 MG TAB PO SCH ×2 (07:09→13:01)
[2025-04-30] MEDS: SODIUM CHLORIDE 0.9% 1000ML IV SCH (07:09)
[2025-04-30] MEDS: FAMOTIDINE 20 MG TAB PO SCH (07:09)
[2025-04-30] MEDS: GABAPENTIN 300 MG CAP PO SCH (07:10)
[2025-04-30] MEDS: LR 60ML/HR IV SCH (07:10)
[2025-04-30] MEDS: dexAMETHasone**PF** 10 MG/ML VIAL IV SCH (07:10)
[2025-04-30] MEDS ORDERED: MIDAZOLAM HCL 1 MG/ML 2ML VIAL ONE (07:42)
[2025-04-30] MEDS ORDERED: PROPOFOL IV EMULSION 10 MG/ML 20 ML VIAL IV ONE (07:43)
[2025-04-30] MEDS ORDERED: ONDANSETRON INJ 2 MG/ML 2 ML VIAL ONE ×2 (07:43→10:07)
--- NOTE | 2025-04-30 07:57 | History & Physical Bridge Note ---
Date of Service April 30, 2025 History & Physical Bridge Note I have examined the patient, reviewed the History & Physical and in the interval since the performance of the History & Physical I have noted the following changes of clinical significance: no changes noted
[2025-04-30] MEDS ORDERED: ATROPINE SULFATE 0.1 MG/ML 10ML SYR IV PRN (08:30)
[2025-04-30] MEDS ORDERED: PROMETHAZINE HCL 6.25 MG in SODIUM CHLORIDE 0.9% 50 ML IV PRN (08:30)
[2025-04-30] MEDS ORDERED: HYDROmorphone INJ 1 MG/ML SYRINGE IV PRN (08:30)
[2025-04-30] MEDS: TRANEXAMIC ACID 1,000 MG **IV Pre-op IV SCH (08:55)
[2025-04-30] MEDS ORDERED: ePHEDrine sulfate 50 MG/5 ML SYR ONE (09:18)
[2025-04-30] MEDS ORDERED: PHENYLEPHRINE 100MCG/ML 5ML SYR ONE (09:18)
[2025-04-30] MEDS ORDERED: PHENYLEPHRINE HCL 10 MG/ML VIAL ONE (09:39)
[2025-04-30] MEDS: ROPIV 0.5% 246mg, Ketorolac 30mg, EPINEPHrine 0.5mg in NSS INFIL SCH (09:43)
[2025-04-30] MEDS: ORTHO JOINT ANESTHETIC ONE ×2 (09:44)
--- NOTE | 2025-04-30 09:59 | Operative Report ---
PG Post Operative Report Pre & Post Diagnosis Operation Date: 04/30/25 09:00 Pre-Op Diagnosis: Osteoarthritis of right hip Post-Op Diagnosis: Osteoarthritis of right hip I identified the patient and participated in the time-out.: Yes Procedure Operation Date: 04/30/25 09:00 Actual Procedures p Right Anterior Total Hip Arthroplasty(Right) - Alexander Holland DO Surgeon Alexander Holland DO Highway Maintenance Supervisor Sukumar Mena PA-C Estimated Blood Loss 150 Findings Consistent with Post-Op Diagnosis Specimens Right femoral head Description of Procedure Implants used I used a [employer]immer[employer] total hip arthroplasty system with a size 4 standard offset Z1 stem, a 50 mm G7 cup with a 25mm screw, an E1 polyethylene liner, a 36 mm ceramic head with a 0 neck. Adry arrived at the hospital for the above procedure. She was seen in the preoperative holding area and the operative extremity was identified and signed. She was given a spinal anesthetic, a preoperative antibiotic, and TXA. She was then taken back to the operating room and laid on the table in the supine position. She was given basic sedation. The operative leg was secured to a Puristst leg positioner. The hip was then prepped and draped in sterile fashion. A timeout was done and the patient and the operative extremity was properly identified. An anterior approach was used. Dissection was taken down through the fascia and the tensor muscle belly was retracted laterally and the rectus was retracted medially. The circumflex vessels were identified and ligated. The capsule was then incised and tagged for later repair. The femoral neck was then cut and the femoral head was removed. The acetabulum was exposed. Time was spent doing a complete circumferential labral release. Sequential reaming of the acetabulum up to a size 49 reamer was done. Final reamings were done under fluoroscopy to ensure appropriate version. A Biomet 50 mm G7 cup was then impacted into place. A single 25 mm screw was placed. The E1 polyethylene liner was then snapped into place. Surrounding soft tissues were then injected with 100 cc of an orthopedic pain control cocktail. The proximal femur was then exposed. Sequential broaching up to a size 4 broach was done. Off that broach a size 36 head with a 0 neck was trialed. The hip was reduced and fluoroscopic images showed anatomic alignment of the implants in acceptable length. The broach was removed. The final size 4 standard offset Z1 stem was then impacted into place. A ceramic 36 mm head with a 0 neck was then impacted onto the stem and the hip was reduced. Final fluoroscopic images showed anatomic alignment of the hip. The capsule was then closed with #1 Vicryl suture. A dilute betadyne lavage was then done for 3 minutes. The joint was then irrigated with normal saline solution. The fascia was closed with #1 PDS suture. Skin was closed with 2-0 Vicryl, gurinder, and a Silverlon dressing. She was then transferred to a hospital bed and taken to the post anesthesia care unit in stable condition. She tolerated the procedure well. Sukumar Mena PA-C, was present for the entire procedure. He was critical for patient positioning, prepping, draping, retraction exposure, wound closure and application of sterile dressing. I attest to the content of the Intraoperative Record and any orders documented therein. Any exceptions are noted below.
[2025-04-30] MEDS ORDERED: DEXAMETHASONE SOD INJ 4 MG/ML VIAL ONE (10:06)
--- NOTE | 2025-04-30 10:43 | Fluoroscopy Report ---
FL hip RT 1V CLINICAL HISTORY: RIGHT ANTERIOR HIP COMPARISON STUDY: None FLUOROSCOPY TIME: 13 seconds FLUOROSCOPY IMAGES: 1 EXPOSURE DOSE: 1.4 mGy FINDINGS: Fluoroscopy was provided for right hip prosthesis. IMPRESSION: Intraoperative fluoroscopy. ACT 112: Negative or not required by law. Electronically signed by: Dillon Foley M.D. 04/30/2025 10:42 AM
--- NOTE | 2025-04-30 11:20 | XRay Report ---
XR hip RT 2V w pelvis CLINICAL HISTORY: postop COMPARISON: 07/11/2015 FINDINGS: Right hip prosthesis shows no hardware complication. There is expected soft tissue gas. IMPRESSION: Unremarkable postoperative exam. ACT 112: Negative or not required by law. Electronically signed by: Dillon Foley M.D. 04/30/2025 11:18 AM
[2025-04-30] MEDS ORDERED: diphenhydrAMINE Capsule 25 MG CAP PO PRN (11:39)
[2025-04-30] MEDS ORDERED: ONDANSETRON INJ 2 MG/ML 2 ML VIAL IV PRN (11:39)
[2025-04-30] MEDS ORDERED: NALOXONE HCL 0.4 MG/1 ML VIAL/CARP IV PRN (11:39)
[2025-04-30] MEDS ORDERED: METOCLOPRAMIDE HCL INJ 5 MG/ML 2 ML VIAL IV PRN (11:39)
[2025-04-30] MEDS ORDERED: HYDROmorphone INJ 0.5 MG/0.5 ML SYR IV PRN (11:39)
[2025-04-30] MEDS ORDERED: MAGNESIUM HYDROXIDE SUSP 30 ML UDC PO PRN (11:39)
[2025-04-30] MEDS ORDERED: ARTIFICIAL TEARS OP PRN (11:54)
[2025-04-30] MEDS: SODIUM CHLORIDE 0.9% 1,000 ML IV SCH (12:04)
[2025-04-30] MEDS: KETOROLAC TROMETHAMINE 15 MG/ML VIAL IV SCH (12:07)
[2025-04-30] MEDS: SPIRONOLACTONE 25 MG TAB PO SCH (13:01)
--- NOTE | 2025-04-30 13:13 | Anesthesiology Progress Note ---
Date of Service April 30, 2025 Anesthesia Post Procedure Vital Signs Vital Signs: Temp Pulse Pulse Pulse Resp BP Pulse Ox 04/30/25 12:30 36.3 C L 62 16 96/51 L 97 04/30/25 12:00 36.4 C L 63 16 104/58 L 94 04/30/25 11:30 36.6 C 64 14 100/62 95 04/30/25 11:15 70 16 94/46 L 97 04/30/25 11:00 61 18 93/49 L 92 04/30/25 10:50 36.4 C L 66 16 94/50 L 95 04/30/25 10:40 65 14 96/48 L 95 04/30/25 10:30 68 16 98/46 L 98 04/30/25 10:20 36.3 C L 69 18 96/48 L 96 04/30/25 07:00 37.2 C 68 18 144/64 H 96 O2 Del Method 04/30/25 12:30 Room Air 04/30/25 12:00 Room Air 04/30/25 11:30 Room Air 04/30/25 11:15 Room Air 04/30/25 11:00 Room Air 04/30/25 10:50 Room Air 04/30/25 10:40 Room Air 04/30/25 10:30 Room Air 04/30/25 10:20 Room Air 04/30/25 07:00 Room Air Transfer of Care Handoff Completed per policy Notes Mental Status: alert / awake / arousable Patient Amnestic to Procedure: Yes Nausea / Vomiting: adequately controlled Pain: adequately controlled Airway Patency, RR, SpO2: stable & adequate BP & HR: stable & adequate Hydration State: stable & adequate Neuraxial Anesthesia: was administered and sensory block is resolving Anesthetic Complications: no major complications apparent
[2025-04-30] MEDS: LOSARTAN POTASSIUM 50 MG TAB PO SCH (20:37)
[2025-04-30] MEDS: SENNA 8.6 MG TAB PO SCH (20:37)
[2025-04-30] MEDS: DOCUSATE SODIUM 100 MG CAP PO SCH (20:37)
[2025-04-30] MEDS: ATORVASTATIN 10 MG TAB PO SCH (20:37)
[2025-04-30] MEDS: ASPIRIN 81 MG ECTAB PO SCH (20:37)
[2025-05-01 03:02] VITALS: RESP 16
[2025-05-01] MEDS: LEVOTHYROXINE SODIUM 75 MCG TABLET PO SCH (05:47)
[2025-05-01 07:14] VITALS: BP 121/52; PULSE 84; TEMP 98.4; O2SAT 95
[2025-05-01] MEDS: FUROSEMIDE 20 MG TAB PO SCH (07:44)
[2025-05-01] MEDS: VIBEGRON 75 MG TAB PO SCH (07:46)
[2025-05-01] MEDS: MULTIVITAMIN TAB PO SCH (07:46)
--- NOTE | 2025-05-01 08:24 | Orthopedic Progress Note ---
Date of Service May 01, 2025 Assessment & Plan (1) S/P total right hip arthroplasty: Overall she is doing very well. She is not having much pain in the right hip. She will be seen by physical therapy today for ambulation and range of motion exercises. She is on aspirin for DVT prophylaxis. She can be discharged to home later today. She will follow-up with orthopedics in 2 weeks. Veronica Rider was seen and examined at bedside this morning. Overall she is doing fairly well. She is not having much pain in her right hip. She is been up and ambulating to the bathroom. She has no complaints.. Review of Systems All systems reviewed & are unremarkable except as noted in HPI & below. Physical Exam On physical exam of the right hip, the dressing is clean and dry. Her leg is out full extension. She has active dorsiflexion and plantarflexion of the right ankle.. Results & Data Results & Data Laboratory Results . Diagnostic Findings Postoperative x-rays of the right hip show the prosthesis to be in anatomic alignment without any evidence of fracture, dislocation, or loosening.. PG Care Time/CCT Total # of Minutes Spent Total Time Spent with Patient: Total time spent is greater than 50% in coordination of care (as documented) at patient's floor/unit and/or counseling patient: Coding Level of Care Code 39502 Post Operative Follow-Up Diagnoses S/P total right hip arthroplasty Z96.641
--- NOTE | 2025-05-10 07:44 | Coding Query ---
PATHOLOGY To promote full compliance with coding requirements relating to patient care, physician participation is requested in all cases of garage manager uncertainty. Please assist us with the question(s) below: Please review the Pathology report and please document any relevant diagnosis(es) below: Diagnosis(es): Thank you Claritza DANIELLE
== END 2025-05-01 10:50 | disposition home health service (06) | DRG 470 ==
LOC: ASU 06:33 → 3E 11:00